=== PATIENT | male | born 1940 | race Caucasian/White ===

== ENCOUNTER 2017-04-19 17:05 | Inpatient (IN) | payer OTHER ==
[~2017-04-19] VITALS: Ht 172.7 cm; Wt 88.1 kg
[~2017-04-19 17:05] MED LIST: ALTACE10 MG PO; ASPIRIN81 M1 PO; Ecotrin PO; LEVOTHYROXINE50 MCG PO; NORVASC10 MG PO; PANTOPRAZOLE SO40 MG; PANTOPRAZOLE SO40 MG PO; PRAVACHOL40 MG PO; TOPROL XL6.25 MG PO; Xarelto PO
[2017-04-19 18:20] LABS: CHLORIDE 103 mEq/L (99-109); POTASSIUM 4.4 mEq/L (3.7-5.4); SODIUM 137 mEq/L (136-147)
[2017-04-19 18:21] LABS: GLUCOSE 109 mg/dL (70-99)
[2017-04-19 18:23] LABS: ANION GAP 12 MEQ/L (2-14)
[2017-04-19 18:25] LABS: GFR ESTIMATE (CALCULATED) 57 mL/min/
[2017-04-19 18:26] LABS: UREA NITROGEN (BUN) 20 mg/dL (9-23)
[2017-04-19 20:58] LABS: EOSINOPHIL (%) 0.7 % (0-5); EOSINOPHIL COUNT 0.1 K/uL (0-0.3); HEMATOCRIT 38.3 % (38.0-50.0); IMMATURE GRANULOCYTE (%) 0.5 % (0.0-0.7); INSTRUMENT ABS NEUTROPHIL CT 5.4 K/uL; LYMPHOCYTE COUNT 1.8 K/uL (1.0-2.8); MCH 30.8 PG (29.0-34.0); MCHC 34.5 G/DL (30.0-36.0); MCV 89.5 FL (86-99); MEAN PLAT.VOLUME 11.1 uM^3 (9.0-12.4); MONOCYTE (%) 11.6 % (3-12); NEUTROPHIL (%) 64.9 % (45-76); NEUTROPHIL COUNT 5.4 K/uL (1.8-6.4); PLATELET COUNT 211 K/uL (156-360); RBC DIS.WIDTH-SD 42.7 % (39-53); RED BLOOD COUNT 4.28 M/uL (4.00-5.50); WHITE BLOOD COUNT 8.3 K/uL (4.1-10.2)
[2017-04-19 21:22] LABS: CHLORIDE 105 mEq/L (99-109); POTASSIUM 4.2 mEq/L (3.7-5.4); SODIUM 137 mEq/L (136-147)
[2017-04-19 21:25] LABS: GLUCOSE 95 mg/dL (70-99)
[2017-04-19 21:26] LABS: ANION GAP 10 MEQ/L (2-14)
[2017-04-19 21:27] LABS: TOTAL BILIRUBIN 0.4 mg/dL (0.0-1.0)
[2017-04-19 21:28] LABS: ALKALINE PHOSPHATASE 60 IU/L (3-129); GFR ESTIMATE (CALCULATED) 57 mL/min/
[2017-04-19 21:29] LABS: UREA NITROGEN (BUN) 19 mg/dL (9-23)
[2017-04-19] MEDS ORDERED: OMEPRAZOLE40 M1 PO (21:29)
[2017-04-19] MEDS ORDERED: ASPIRIN81 M2 PO ×2 (21:30)
[2017-04-19] MEDS ORDERED: DAILY VITE1 EAC1 PO (21:31)
[2017-04-19] MEDS ORDERED: VOLTAREN 1% GE100 GM TP (21:32)
[2017-04-19 21:44] LABS: ADD MIUA? NO; BILIRUBIN NEGATIVE; BLOOD NEGATIVE; COLOR YELLOW ((YELLOW)); GLUCOSE (STRIP) NEGATIVE; KETONES NEGATIVE; LEUKOCYTES NEGATIVE; NITRITE NEGATIVE; PROTEIN (STRIP) NEGATIVE; SPECIFIC GRAVITY 1.044 (1.000-1.030); UCUL ADDED? NO; UROBILINOGEN 0.2 MG/DL (0.2-1.0)
[2017-04-20 02:18] LABS: POINT-OF-CARE METER ID UU13113675
[2017-04-20 03:56] VITALS: BP 129/67
[2017-04-20 05:55] LABS: POINT-OF-CARE METER ID UU13113725
[2017-04-20 06:40] LABS: HEMATOCRIT 37.1 % (38.0-50.0); MCHC 34.2 G/DL (30.0-36.0); MCV 90.5 FL (86-99); MEAN PLAT.VOLUME 11.5 uM^3 (9.0-12.4); PLATELET COUNT 224 K/uL (156-360); RBC DIS.WIDTH-CV 13.2 % (11.8-14.6); RBC DIS.WIDTH-SD 43.7 % (39-53); WHITE BLOOD COUNT 9.8 K/uL (4.1-10.2)
[2017-04-20 07:03] LABS: ANION GAP 12 MEQ/L (2-14); CHLORIDE 105 MEQ/L (99-109); GFR ESTIMATE (CALCULATED) > 59 mL/min/; GLUCOSE 183 mg/dL (70-99); POTASSIUM 4.4 MEQ/L (3.7-5.4); SAMPLE HEMOLYSIS CHECK 0; SAMPLE ICTERIC CHECK 0; SAMPLE LIPEMIA CHECK 0; SODIUM 138 MEQ/L (136-147); UREA NITROGEN (BUN) 14 mg/dL (9-23)
[2017-04-20 07:39] VITALS: BP 131/68
[2017-04-20 11:43] LABS: POINT-OF-CARE METER ID UU13113725
[2017-04-20 11:45] VITALS: BP 130/65
[2017-04-20 15:53] LABS: POINT-OF-CARE METER ID UU13113725
[2017-04-20 16:25] VITALS: BP 126/68
[2017-04-20 19:44] VITALS: BP 155/75
[2017-04-20 23:28] LABS: POINT-OF-CARE METER ID UU13113725; POINT-OF-CARE USER ID 609231305
[2017-04-21] VITALS (8 sets, daily range): BP systolic 126–139; BP diastolic 62–74
[2017-04-21 05:51] LABS: POINT-OF-CARE USER ID 609231305
[2017-04-21 07:09] LABS: HEMATOCRIT 33.3 % (38.0-50.0); MCH 31.7 PG (29.0-34.0); MCHC 34.2 G/DL (30.0-36.0); MCV 92.5 FL (86-99); MEAN PLAT.VOLUME 11.4 uM^3 (9.0-12.4); PLATELET COUNT 206 K/uL (156-360); RBC DIS.WIDTH-CV 13.6 % (11.8-14.6); RBC DIS.WIDTH-SD 46.3 % (39-53); WHITE BLOOD COUNT 14.6 K/uL (4.1-10.2)
[2017-04-21 07:15] LABS: ANION GAP 9 MEQ/L (2-14); CHLORIDE 109 MEQ/L (99-109); GFR ESTIMATE (CALCULATED) > 59 mL/min/; GLUCOSE 199 mg/dL (70-99); POTASSIUM 4.3 MEQ/L (3.7-5.4); SAMPLE HEMOLYSIS CHECK 0; SAMPLE ICTERIC CHECK 0; SAMPLE LIPEMIA CHECK 0; SODIUM 139 MEQ/L (136-147); UREA NITROGEN (BUN) 13 mg/dL (9-23)
[2017-04-21 11:49] LABS: POINT-OF-CARE METER ID UU13113725
[2017-04-21 23:07] LABS: POINT-OF-CARE METER ID UU13113725
[2017-04-22 02:56] VITALS: BP 124/71
[2017-04-22 05:48] LABS: POINT-OF-CARE METER ID UU13113725
[2017-04-22 07:04] LABS: MCH 31.4 PG (29.0-34.0); MCHC 34.5 G/DL (30.0-36.0); MCV 90.9 FL (86-99); MEAN PLAT.VOLUME 11.7 uM^3 (9.0-12.4); PLATELET COUNT 228 K/uL (156-360); RBC DIS.WIDTH-CV 13.4 % (11.8-14.6); RBC DIS.WIDTH-SD 44.8 % (39-53); RED BLOOD COUNT 3.63 M/uL (4.00-5.50); WHITE BLOOD COUNT 14.7 K/uL (4.1-10.2)
[2017-04-22 07:09] VITALS: BP 147/84
[2017-04-22 07:32] LABS: ANION GAP 11 MEQ/L (2-14); CHLORIDE 107 MEQ/L (99-109); GFR ESTIMATE (CALCULATED) > 59 mL/min/; GLUCOSE 168 mg/dL (70-99); SAMPLE HEMOLYSIS CHECK 0; SAMPLE ICTERIC CHECK 0; SAMPLE LIPEMIA CHECK 0; SODIUM 138 MEQ/L (136-147); UREA NITROGEN (BUN) 13 mg/dL (9-23)
[2017-04-22 11:33] VITALS: BP 157/71
[2017-04-22 11:45] LABS: POINT-OF-CARE METER ID UU13113725
[2017-04-22 16:29] VITALS: BP 134/87
[2017-04-22 18:13] LABS: POINT-OF-CARE METER ID UU13113725
[2017-04-22 19:07] VITALS: BP 163/77
[2017-04-22 22:52] VITALS: BP 145/86
[2017-04-22 23:09] LABS: POINT-OF-CARE METER ID UU13113725
[2017-04-23 06:19] LABS: HEMATOCRIT 30.5 % (38.0-50.0); MCH 31.3 PG (29.0-34.0); MCHC 35.1 G/DL (30.0-36.0); MCV 89.2 FL (86-99); MEAN PLAT.VOLUME 11.6 uM^3 (9.0-12.4); PLATELET COUNT 250 K/uL (156-360); RBC DIS.WIDTH-CV 13.2 % (11.8-14.6); RBC DIS.WIDTH-SD 43.4 % (39-53); RED BLOOD COUNT 3.42 M/uL (4.00-5.50); WHITE BLOOD COUNT 11.6 K/uL (4.1-10.2)
[2017-04-23 06:39] LABS: ANION GAP 10 MEQ/L (2-14); CHLORIDE 106 MEQ/L (99-109); GFR ESTIMATE (CALCULATED) > 59 mL/min/; GLUCOSE 159 mg/dL (70-99); POTASSIUM 3.9 MEQ/L (3.7-5.4); SAMPLE HEMOLYSIS CHECK 0; SAMPLE ICTERIC CHECK 0; SAMPLE LIPEMIA CHECK 0; SODIUM 138 MEQ/L (136-147); UREA NITROGEN (BUN) 15 mg/dL (9-23)
[2017-04-23 06:45] VITALS: BP 137/90
[2017-04-23 11:00] VITALS: BP 130/81
[2017-04-23 12:44] LABS: POINT-OF-CARE METER ID UU13113725
[2017-04-23 15:00] VITALS: BP 133/83
[2017-04-23 19:16] VITALS: BP 138/79
[2017-04-23 22:52] VITALS: BP 166/89
[2017-04-23 23:53] LABS: POINT-OF-CARE METER ID UU13113725
[2017-04-24 02:37] VITALS: BP 127/77
[2017-04-24 06:21] LABS: POINT-OF-CARE METER ID UU13113725
[2017-04-24 07:11] LABS: MCH 30.2 PG (29.0-34.0); MCHC 34.3 G/DL (30.0-36.0); MCV 88.2 FL (86-99); MEAN PLAT.VOLUME 11.8 uM^3 (9.0-12.4); NRBC (%) 0.2 /100 WBC (0-0); PLATELET COUNT 291 K/uL (156-360); RBC DIS.WIDTH-CV 13.1 % (11.8-14.6); RBC DIS.WIDTH-SD 42.7 % (39-53); RED BLOOD COUNT 3.97 M/uL (4.00-5.50); WHITE BLOOD COUNT 9.8 K/uL (4.1-10.2)
[2017-04-24 07:37] LABS: ANION GAP 11 MEQ/L (2-14); CHLORIDE 105 MEQ/L (99-109); GFR ESTIMATE (CALCULATED) > 59 mL/min/; GLUCOSE 133 mg/dL (70-99); POTASSIUM 3.4 MEQ/L (3.7-5.4); SAMPLE HEMOLYSIS CHECK 0; SAMPLE ICTERIC CHECK 0; SAMPLE LIPEMIA CHECK 0; SODIUM 138 MEQ/L (136-147); UREA NITROGEN (BUN) 13 mg/dL (9-23)
[2017-04-24 08:03] VITALS: BP 138/80
[2017-04-24 11:49] VITALS: BP 143/81
[2017-04-24 11:51] LABS: POINT-OF-CARE METER ID UU13113725
[2017-04-24 15:45] VITALS: BP 130/81
[2017-04-24 17:00] LABS: POINT-OF-CARE METER ID UU13113725
[2017-04-24 21:45] LABS: POINT-OF-CARE METER ID UU13113725
[2017-04-24 23:25] VITALS: BP 138/83
[2017-04-25 06:16] LABS: POINT-OF-CARE METER ID UU13113725
[2017-04-25 06:39] LABS: HEMATOCRIT 35.1 % (38.0-50.0); MCHC 35.6 G/DL (30.0-36.0); MCV 87.1 FL (86-99); MEAN PLAT.VOLUME 11.4 uM^3 (9.0-12.4); PLATELET COUNT 305 K/uL (156-360); RBC DIS.WIDTH-CV 13.1 % (11.8-14.6); RBC DIS.WIDTH-SD 41.1 % (39-53); RED BLOOD COUNT 4.03 M/uL (4.00-5.50); WHITE BLOOD COUNT 10.5 K/uL (4.1-10.2)
[2017-04-25 07:03] LABS: ANION GAP 11 MEQ/L (2-14); CHLORIDE 105 MEQ/L (99-109); GFR ESTIMATE (CALCULATED) > 59 mL/min/; GLUCOSE 129 mg/dL (70-99); POTASSIUM 3.6 MEQ/L (3.7-5.4); SAMPLE HEMOLYSIS CHECK 0; SAMPLE ICTERIC CHECK 0; SAMPLE LIPEMIA CHECK 0; SODIUM 138 MEQ/L (136-147); UREA NITROGEN (BUN) 12 mg/dL (9-23)
[2017-04-25 08:17] VITALS: BP 137/81
[2017-04-25] MEDS ORDERED: HYDROCODON-ACE1 EAC7 PO (15:06)
[2017-04-25] MEDS ORDERED: AUGMENTIN875 MG PO (15:07)
== END 2017-04-25 16:34 | disposition home or self-care (01) | DRG 330 ==
LOC: RAD 17:05 → EME 17:05 → 5EAST 04-20 00:05 → EME 04-20 00:05 → SDC 04-20 00:05 → 5EAST 04-20 01:59 → 2SOUTH 04-20 01:59 → 5EAST 04-20 03:47
PROVIDERS: Emergency Medicine; Family Medicine; Surgery
PROC: 0DTF0ZZ Resection of Right Large Intestine, Open Approach (ICD-10-PCS; principal; 2017-04-20)
DX: C18.1 Malignant neoplasm of appendix (principal); C77.2 Secondary and unspecified malignant neoplasm of intra-abdominal lymph nodes; K36 Other appendicitis; K56.7 Ileus, unspecified; L72.3 Sebaceous cyst; E78.5 Hyperlipidemia, unspecified; I10 Essential (primary) hypertension; K21.9 Gastro-esophageal reflux disease without esophagitis; K82.8 Other specified diseases of gallbladder; I25.10 Atherosclerotic heart disease of native coronary artery without angina pectoris; Z95.5 Presence of coronary angioplasty implant and graft; Z90.49 Acquired absence of other specified parts of digestive tract; Z87.891 Personal history of nicotine dependence; Z86.010 Personal history of colon polyps; I25.2 Old myocardial infarction
CPT/HCPCS: 71020; 74177; 80048; 80053; 81003; 82378; 82948; 83605; 85025; 85027; 86900; 86901; 87070; 87075; 87076; 87185; 87205; 88309; 93005; 94799; 99281; 99285; J0360; J1170; J1650; J1815; J2250; J2405; J3010; J3480; J7030; S0028